=== PATIENT | male | born 1985 | race Hispanic/Latino ===

== ENCOUNTER 2018-07-14 18:43 | Emergency (ER) | payer SELFPAY ==
[~2018-07-14] VITALS: Ht 167.6 cm; Wt 65.0 kg
[2018-07-14] MEDS ORDERED: TRAMADOL HYDROC50 MG PO (20:59)
[2018-07-14 21:10] VITALS: BP 125/72
== END 2018-07-14 21:30 | disposition home or self-care (01) | DRG 914 ==
LOC: ED 18:43
DX: S69.92XA Unspecified injury of left wrist, hand and finger(s), initial encounter (principal); W11.XXXA Fall on and from ladder, initial encounter; M25.512 Pain in left shoulder; M25.532 Pain in left wrist